=== PATIENT | male | born 1955 | race Caucasian/White ===

== ENCOUNTER 2018-05-19 11:55 | Outpatient (CLI) | payer SELFPAY | END 2018-05-19 11:56 | disposition home or self-care (01) | LOC: LAB.F 11:55 | PROVIDERS: ATTEND Internal Medicine | DX: Z53.9 Procedure and treatment not carried out, unspecified reason (principal) ==

== ENCOUNTER 2018-05-20 07:55 | Outpatient (CLI) | payer OTHER ==
[2018-05-20 10:10] LABS: BASOPHILS % (AUTO) 0.3 %; EOSINOPHILS # (AUTO) 0.1 10^3/uL (0.0-0.7); EOSINOPHILS % (AUTO) 1.9 %; HGB - HEMOGLOBIN 15.3 g/dL (14.0-18.0); LYMPHOCYTES # (AUTO) 0.7 10^3/uL (1.5-3.5); LYMPHOCYTES % (AUTO) 17.5 %; MEAN CORPUSCULAR HEMOGLOBIN 32.5 pg (27.0-31.0); MEAN CORPUSCULAR HGB CONC 35.6 g/dL (32.0-36.0); MEAN CORPUSCULAR VOLUME 91.1 fL (80.0-94.0); MEAN PLATELET VOLUME 8.6 fL (7.4-11.4); MONOCYTES # (AUTO) 0.3 10^3/uL (0.0-1.0); MONOCYTES % (AUTO) 7.6 %; NEUTROPHILS # (AUTO) 2.7 10^3/uL (1.5-6.6); NEUTROPHILS % (AUTO) 72.7 %; PLT - PLATELET COUNT 173 10^3/uL (130-450); RED BLOOD COUNT 4.72 10^6/uL (4.70-6.10); RED CELL DISTRIBUTION WIDTH 13.5 % (12.0-15.0); WHITE BLOOD COUNT 3.7 x10^3/uL (4.8-10.8)
[2018-05-20 10:33] LABS: ALBUMIN 4.3 g/dL (3.2-5.5); ALBUMIN/GLOBULIN RATIO 1.7 (1.0-2.2); ALKALINE PHOSPHATASE 48 IU/L (42-121); ALT ALANINE AMINOTRANSFERASE 21 IU/L (10-60); AST ASPARTATE AMINOTRANSFERASE 25 IU/L (10-42); BILIRUBIN,TOTAL 1.8 mg/dL (0.2-1.0); BUN - BLOOD UREA NITROGEN 13 mg/dL (6-20); CARBON DIOXIDE - CO2 28 mmol/L (21-32); CHLORIDE 105 mmol/L (101-111); CHOL/HDL RATIO 3.6 (<5.0); CHOLESTEROL 216 mg/dL; CREATININE 0.9 mg/dL (0.6-1.2); GFR - MDRD 86 (>89); GLUCOSE 98 mg/dL (70-100); HDL CHOLESTEROL 60 mg/dL; LDL CHOLESTEROL,CALCULATED 143 mg/dL; LDL/HDL RATIO 2.4 (<3.6); SODIUM 140 mmol/L (135-145); TOTAL PROTEIN 6.8 g/dL (6.7-8.2); VLDL CHOLESTEROL 13 mg/dL
[2018-05-20 10:44] LABS: THYROID STIMULATING HORMONE 2.53 uIU/mL (0.34-5.60)
== END 2018-05-20 07:56 | disposition home or self-care (01) ==
LOC: LAB.F 07:55
PROVIDERS: ATTEND Physician Assistant Medical
DX: Z00.00 Encounter for general adult medical examination without abnormal findings (principal); R41.89 Other symptoms and signs involving cognitive functions and awareness
CPT/HCPCS: 36415; 80053; 80061; 81599; 82306; 82607; 83721; 84153; 84443; 85025; 86592

== ENCOUNTER 2018-07-31 09:32 | Outpatient (CLI) | payer OTHER ==
--- NOTE | 2018-07-31 17:58 | CONSULTATION NOTE ---
Palliative Care Consultation - Referral Referring Provider: Dr. Gladis Pruitt Time of Visit: [id number] [place] [facility] [place] Reason: Left Parietal Glioblastoma/Goals of Care - Information Sources Records reviewed: Previous records reviewed History/Review of Systems obtained from: Patient, Family (S/O Priscila Fransico with patient) Exam limitations: No limitations - History of Present Illness Brief History of Present Illness: This is a 62-year-old gentleman who reports having increased cognitive changes over 6-8-months previous to his diagnosis. He is been experiencing increased difficulty with writing, finding words, and some aphasia. He was a contractor, and was noting increased difficulty with communication, and more difficulty with complex discussions. On 05/14/2018 saw his primary care provider, who recommended a MRI and was found to have a left parietal intrinsic brain mass on imaging measuring 4.4 x 5.9 cm. He was transferred to the [facility], original plan had been to have an open craniotomy, but given the risks given the location of the lesion, more likely to cause further deficits, he had a sterotactic biopsy on 06/04. He is currently receiving concurrent chemoradiation with Temodar. He started radiation on 06/25/2018 and started Temodar on 06/27/2018. He is due to finish on 08/13/2018. He mostly has experienced low-grade nausea, mild anorexia, and fatigue. He remains quite functional and indeed continues to bike and participate in normal activities. Treatment regimen will then include 6 months of monthly Temodar. He is currently also participating in the Navitas trial, using a halo device that delivers ultra low dose [employer]. He wears this at all times, and gets labs regularly as part of trial. Patient does understand the seriousness of his illness, treatment is palliative in nature, and does express some resignation given the current situation. He reports he has an internal [place] of friends, who are helping him explore further treatment regimens, as well as support him and his current journey. He did have a 3-hour interview with an oncologist in [place], looking at a molecular proposal, that integrates into current treatment plan. He did report it was somewhat overwhelming, and of course would be of significant expense.Both he and his partner are feeling significantly impacted by the current situation, many of the unknowns, and how best to move forward with the decision making process. Medical/Surgical History - Past Medical History Cardiovascular: reports: None Respiratory: reports: None Endocrine/Autoimmune: reports: None GI: reports: None : reports: None HEENT: reports: None Psych: reports: None Musculoskeletal: reports: None Derm: reports: None MRSA Hx?: No - Past Surgical History HEENT: reports: Other (wisdom teeth) - Substance History Use: Uses substance without health or social issues: Cannabis Social History - Living Situation Living arrangement: At home Living Situation: With spouse/s.o. Support System: Patient lives with his significant other Priscila Bateman, has been stressful for the relationship, trying to negotiate moving forward how to live in a "new normal" and address issues as they surface. She would like him to be more involved in his care, she has been managing most of appointments/meetings/ etc. They have put some advanced care planning components in place, but still working finishing these up. Family History - Family History Family History: Father: Alive and Well (his father and her father are both frail) Medications/Allergies - Medications Home Medications: Ambulatory Orders Medication Instructions Recorded Confirmed Levetiracetam [Keppra] 500 mg PO BID 07/14/18 08/03/18 Temozolomide [Temodar] 150 mg PO DAILY 07/14/18 08/03/18 Ondansetron [Ondansetron Odt] 4 mg PO Q6HR PRN 08/03/18 08/03/18 - Allergies Allergies/Adverse Reactions: Allergies Allergy/AdvReac Type Severity Reaction Status Date / Time Sulfa (Sulfonamide AdvReac Mild Rash Verified 07/18/14 13:12 Antibiotics) Review of Systems - Constitutional Constitutional: reports: Fatigue, Weight stable. denies: Fever, Chills - Respiratory Respiratory: reports: SOB with exertion. denies: SOB at rest - Gastrointestinal Gastrointestinal: reports: Nausea, Other (some impact on appetite; using CBD for nausea). denies: Vomiting - Neurological Neurological: reports: Memory problems - Hematologic/Lymphatic Hematologic/Lymphatic: denies: Recurrent infections Physical Exam - Vital Signs Pulse Rate: 79 Respiratory Rate: 18 Blood Pressure: 113/78 - Physical Exam General Appearance: positive: No acute distress Eyes Bilateral: positive: Normal inspection, Other (left eye watery) ENT: positive: No signs of dehydration Neck: positive: No JVD, Trachea midline Cardiovascular: positive: Regular rate & rhythm Respiratory: positive: No respiratory distress, Breath sounds nml Abdomen: positive: Soft, Nml bowel sounds Skin: positive: Pallor, Dryness Extremities: positive: No pedal edema Neurologic/Psychiatric: positive: Oriented x3 Palliative Care - POLST Patient has POLST: Yes POLST Status: DNR, Selective Treatment (Completed POLST at visit) Pain: No pain Tiredness/Fatigue: Moderate (4-6) Nausea: Mild (1-3) Performance Status: Patient independent in all ADLs and IADLs. Continues his biking, regular activities, is currently retired from his general [employer]. He is awaiting SSI disability. - Palliative Care Discussion: Patient reports he has done D POA with Priscila Bateman as his designated decision maker home phone number [phone]; mobile [phone]. Counseling provided regarding need to get this document into H IM here at the hospital, will bring copy next visit. Counseling provided regarding advanced care planning, given the context of glioblastoma's, changes that occur as a result in progression of disease, is important to have values and thresholds regarding quality of life defined early on. Patient did want a complete FLIP ST, it was reviewed and completed with DNA R and selected treatment, determine the use of antibiotics with comfort is the goal, and no medically assisted nutrition. Patient perceives he has done a lot of inner work, as far is excepting his imminent decline, now has gotten complicated with looking at an integrated therapy plan that may extend both his quantity and quality of life, weighing benefits and burdens of moving forward with this. Recognizing many things play into this picture, including a financial commitment, and the need to prioritize and define what is most important at this point in time. Patient reports has had personal experience with several close friends and family members with hospice, and this is not an overwhelming concept to him either looking into the future. Results - Lab Results Lab results reviewed: Yes Impression and Recommendations - Palliative Care Impression: This is a 62-year-old gentleman with a left parietal glioblastoma, currently receiving concurrent chemoradiation with Temodar. He is exploring other integrated regimens, weighing benefits and burdens as he moves forward and defining what makes sense in the context of his goals and values. Palliative care to continue to provide support for symptom management and counseling around advanced care planning. Recommendations/Counseling Done: 1. Nausea, this is multifactorial in origin. Less likely attributed to radiation combined with Temodar. Patient is using CBD with fairly good results, did provide ondansetron 4 mg ODT prescription though as it "plan B" if more acute and not resolved with CBD. 2. Left parietal glioblastoma. Patient has some deficits relating to this, unable to tell if these at all impact decision-making or coping. Currently patient able to remain quite functional. 2.Advanced care planning. Patient and S/O are experience significant tensions related to addressing current serious illness and implications for both now and in the future. Counseling provided to normalize current grief and loss process, encouraged use of current resources i.e. their counselor and friends cirlce, as well as to look at defining current priorities. FLIP ST completed, discussion regarding end-of-life wishes, as well as decision making in the future. At this point in time exploring integrated therapy options, unfortunately this is added another layer of complexity for navigating this decision making and adding to stressors. Time Spent: 75 minutes with greater than 50% of this done in counseling and coordination of care, anticipatory guidance and advanced care planning
== END 2018-07-31 09:33 | disposition home or self-care (01) ==
LOC: PC 09:32
PROVIDERS: ATTEND Nurse Practitioner Adult Health
DX: Z51.5 Encounter for palliative care (principal); C71.9 Malignant neoplasm of brain, unspecified; R11.0 Nausea; Z66 Do not resuscitate
CPT/HCPCS: 99205

== ENCOUNTER 2018-08-27 08:58 | Outpatient (CLI) | payer OTHER ==
--- NOTE | 2018-08-27 20:47 | CONSULTATION NOTE ---
Palliative Care Follow Up - Referral Referring Provider: Dr. Gladis Pruitt Time of Visit: 03-16 [place] [facility] [place] Reason: Left Parietal Glioblastoma/ Goals of Care - Information Sources Records reviewed: Previous records reviewed History/Review of Systems obtained from: Patient Exam limitations: No limitations - History of Present Illness Update Brief HPI Update: Please see HPI 07/31. This is a 62-year-old gentleman who has a left parietal Glioblastoma. He was having increased cognitive changes over 6-8 months previous to his diagnosis, with writing, finding words, and aphasia. He was seen at [facility], was not a candidate for debulking, but had a stereotactic biopsy on 06/04. During this time. This was an emotional and significant upheaval in trying to chart a course and prepare for the future. Received concurrent chemoradiation with Temodar, and completed this on 2018. Patient also explored further integrative therapies, at this point in time has declined to move forward with this. The plan is for Temodar for 6 months. He is also on the Navitas trial, Using a halo device that delivers ultra low-dose radiofrequency energy, which she wears at all times. Patient presents today with his significant other Shannan, daughter Jadyn from [place], and her significant other Ector. Patient reports he is feeling much improved, as well as he is felt for many months, his speech is better, aphasia is improved, he is able to write and follow emails, and feels somewhat normal. He is aware of the seriousness of his illness, that treatment is palliative in nature, but now that things have settled down is feeling some shift and how he wants to proceed, particularly around goals of care and D POA. This has caused much tension, and the goal of today's visit was to review how to address some of these concerns and how to move forward. Social History - Living Situation Living arrangement: At home Living Situation: With spouse/s.o. 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 Patient lives with his significant other Priscila Bateman, there have been multiple stressors regarding the relationship, and navigating the current situation. Patient identifies his care habematolel, of support. But has shifted the role of Priscila to outside this habematolel, this is caused some notable distress, she identifies herself as a primary caregiver, and wonders about her current role and their relationship.) Medications/Allergies - Medications Home Medications: Ambulatory Orders Medication Instructions Recorded Confirmed Levetiracetam [Keppra] 500 mg PO BID 07/14/18 08/27/18 Ondansetron [Ondansetron Odt] 4 mg PO Q6HR PRN 08/03/18 08/27/18 - Allergies Allergies/Adverse Reactions: Allergies Allergy/AdvReac Type Severity Reaction Status Date / Time Sulfa (Sulfonamide AdvReac Mild Rash Verified 07/18/14 13:12 Antibiotics) Review of Systems - Other Findings Other Findings: As noted in HPI, patient has felt quite well. He has been able to maintain his level of activity, appetite is good. Denies any acute signs or symptoms. His neurological symptoms have improved and is feeling "normal currently". Limited ROS was done in the context of moving forward with family meeting Physical Exam - Physical Exam General Appearance: positive: No acute distress, Alert Eyes Bilateral: positive: Normal inspection ENT: positive: No signs of dehydration Neck: positive: Trachea midline Respiratory: positive: No respiratory distress Neurologic/Psychiatric: positive: Oriented x3, Mood/affect nml Palliative Care - POLST Patient has POLST: Yes POLST Status: DNR, Selective Treatment Pain: Severity (1/10) Tiredness/Fatigue: Mild (1-3) Drowsiness/Sedation: Mild (1-3) Nausea: None Depression: Mild (1-3) Anxiety: Mild (1-3) Dyspnea: None Anorexia: None Feelings of wellbeing/Perceived Quality of Life: Good, Acceptable, Improved Performance Status: Patient currently independently with ADLs, able to function without any limitations. Continues with intermittent word finding, but overall has improved. Does continue to try and maintain his exercise/activity schedule. - Palliative Care Discussion: Discussion related to goals of care, short term goals, long-term planning and EOL values/beliefs, and current tensions/stressors. It would like to change Keke FISH, to his daughter Jadyn particularly around medical/health care decision making.This was discussed and agreed upon, given patient's expressed concerns for future decision making and current tensions in relationship with Priscila. Priscila sharing her concerns regarding feeling insecure around her role, perceives her self is primary caregiver, and being excluded from the process. Counseling regarding normalizing current stressors and often amplification of difficulties and complexities in relationships. Reviewed my concerns, given patient's current clarity, feeling fairly centered and "normal" with his underlying diagnosis, this would be actually a place of urgency to move forward plans and solidifying legal matters. Anticipatory guidance provided regarding the uncertainty of the trajectory, focusing on hoping for the best, and clarity to end of life, but recognizing shifts and complications can happen quite quickly so important to put as much of the infrastructure and information down in writing as possible. Recommended to work with insurance appraiser/or real estate professional regarding financial planning, concerns, and feeling of vulnerability of s/o, but DPOA for medical affairs can be addressed with current forms supplies. Introduced and provided copy of FLIP ST to daughter Jadyn, as she takes on the role of health proxy/D POA for medical affairs. Reviewed currently patient is and can will continue to be able to make decisions independently as long as presents with decision-making capacity. Did recommend future discussions include the threshold for discontinuing treatment, what would not be considered quality of life, who will be his caregiving team and/or plans for support for end-of-life care, and patient's expressed interest regarding DWD option, need to discuss the limitations in the context of neurological disease and brain tumors. Results - Lab Results Lab results reviewed: Yes Impression and Recommendations - Palliative Care Impression: Is a 62-year-old gentleman with left parietal glioblastoma, having completed receiving concurrent chemoradiation with Temodar. He has a MRI scheduled for 09/02, will initiate maintenance of 6 months of team adore most likely based on the outcome of this. He is currently not exploring further integrated treatment, though continues with pedro Cardoso. He presents today with his family and SO, to discuss ongoing goals of care and the complexity of a terminal illness in the midst of heightened emotional tensions. Palliative care to provide support for symptom management as well as emotional distress, will continue to provide anticipatory guidance. Recommendations/Counseling Done: 1. Left parietal glioblastoma. Patient has had improvement with concurrent chemoradiation Temodar. He has a pending MRI, with the expectation of moving forward with 6 months of Temodar. Patient currently functional, presenting with limited deficits. 2. Advanced care planning. Family meeting to include redefining and identifying daughter Jadyn as medical D POA. Provided several different forms, but recommended end of life Pablo as it has more advanced directive components to it to help with decision making in the future. Reviewed the FLIP ST, the role, and provided copies. Given the complexity of the situation, did recommend further follow-up regarding financial D POA, to include follow up with real estate professional/and or insurance appraiser to address concerns but did express my recommendation to attend to this sooner than later. Encouraged follow-up for patient and SO, to negotiate and to define roles moving forward, acknowledging t he complexity of the situation combined with uncertainty of the future is challenging, but important to identify ways to keep communication open to support all involved. Anticipatory guidance provided and addressing Carmen's concerns and questions, and laid out some questions to further discuss in the future to plan for end of life and patient's values. Time Spent: 60 minutes with greater than 50% of this done in family meeting regarding counseling around goals of care and anticipatory guidance.
== END 2018-08-27 08:59 | disposition home or self-care (01) ==
LOC: PC 08:58
PROVIDERS: ATTEND Nurse Practitioner Adult Health
DX: Z51.5 Encounter for palliative care (principal); C71.9 Malignant neoplasm of brain, unspecified; Z66 Do not resuscitate; Z63.0 Problems in relationship with spouse or partner; Z92.3 Personal history of irradiation; Z92.21 Personal history of antineoplastic chemotherapy
CPT/HCPCS: 99215

== ENCOUNTER 2018-09-02 15:39 | Outpatient (CLI) | payer OTHER ==
[2018-09-02] MEDS ORDERED: GADOBUTROL 10 MMOL/10 ML VIAL IVP ONE (17:34)
--- NOTE | 2018-09-03 09:40 | MRI Report ---
Reason: GBM Procedure Date: 09/02/2018 Accession Number: [id number] / [id number] Procedure: MRI - Brain W/WO CPT Code: FULL RESULT: EXAM: MRI BRAIN WITHOUT AND WITH CONTRAST EXAM DATE: 09/02/2018 05:39 PM. CLINICAL HISTORY: 62-year-old male. Left parietal glioblastoma. Completed concurrent chemoradiation with Temodar. COMPARISON: None. TECHNIQUE: Multiplanar, multisequence T1-weighted and fluid-sensitive MR sequences of the brain were performed. Sequences optimized for routine evaluation. Other: None. IV Contrast: 8 mL Gadavist. FINDINGS: Brain Volume: Normal for age. Parenchyma: A lobular circumscribed heterogeneous partially solid and partially cystic mass is seen in the left posterolateral temporal and inferior parietal lobes. This is primarily solid with arcuate cystic component along its superior and posteromedial margins. Solid component demonstrates heterogeneous hypointense T1 signal with patchy areas of T1 shortening and magnetic susceptibility. Scattered areas of restricted diffusion are noted. Rind-like peripheral enhancement is seen. This mass measures 53 x 39 x 50 mm (SI by AP by RL). Localized mass effect is seen. Anterior displacement of the posterior insula and sylvian fissure is seen. Medial displacement of the atrium of the left lateral ventricle is noted with effacement. Mild surrounding T2/FLAIR bright white matter signal is appreciated. The remainder of the brain parenchyma is unremarkable. No acute infarct is seen. No parenchymal hematoma. No shift of midline structures. Ventricles/Cisterns: Mass effect on the posterior left lateral ventricle is seen. No hydrocephalus. No abnormal extra-axial fluid collection or hemorrhage. Orbits: Symmetric and unremarkable. Sella Turcica: Note is made of a partially empty sella turcica. A thin rind of pituitary tissue is seen along the floor of the sella turcica. The pituitary stalk is midline. The cavernous sinuses, suprasellar cistern, and optic chiasm are unremarkable. IAC: Symmetric and unremarkable. Vasculature: Normal signal flow void is seen in the major arterial structures at the skull base. The dural sinuses are patent and enhance normally. Sinuses: No acute sinus disease. Bones: No focal pathologic appearing marrow signal changes. A small biopsy bur hole is seen in the posterior left parietal skull. Other: None. IMPRESSION: 1. Lobular heterogeneous mass in the posterolateral left temporal and inferior parietal lobes consistent with the clinical history of glioblastoma. Mass measures approximately 53 x 39 x 50 mm. Mild surrounding T2/FLAIR bright white matter signal is seen. Localized mass effect is seen especially on the atrium of the left lateral ventricle. 2. The remainder of the brain parenchyma is unremarkable. RADIA
== END 2018-09-02 15:40 | disposition home or self-care (01) ==
LOC: DI 15:39
PROVIDERS: ATTEND Nurse Practitioner Adult Health
DX: C71.9 Malignant neoplasm of brain, unspecified (principal)
CPT/HCPCS: 70553

== ENCOUNTER 2018-11-06 08:04 | Outpatient (CLI) | payer OTHER ==
[2018-11-06] MEDS ORDERED: GADOBUTROL 10 MMOL/10 ML VIAL ONE (09:10)
[2018-11-06] MEDS ORDERED: GADOBUTROL 10 MMOL/10 ML VIAL IVP ONE (09:27)
--- NOTE | 2018-11-06 13:05 | MRI Report ---
Reason: MALIGNANT NEOPLASM OF PARIETAL LOBE Procedure Date: 11/06/2018 Accession Number: [id number] / [id number] Procedure: MRI - Brain W/WO CPT Code: FULL RESULT: EXAM: MRI BRAIN WITHOUT AND WITH CONTRAST EXAM DATE: 11/06/2018 08:46 AM. CLINICAL HISTORY: 62-year-old male with history of left parietal glioblastoma. History of chemoradiation with Temodar. COMPARISON: BRAIN W/WO 09/02/2018 4:59 PM. TECHNIQUE: Multiplanar, multisequence T1-weighted and fluid-sensitive MR sequences of the brain were performed. Sequences optimized for routine evaluation. Other: None. IV Contrast: 8 mL Gadavist. FINDINGS: There is no intense area of diffusion restriction to suggest an area of acute or subacute cerebral infarction. There is a partially solid, partially cystic mass of the left inferior parietal and superior left temporal lobe exhibiting peripheral rim enhancement and central areas of linear enhancement. The mass measures 4.4 x 5.5 x 5.3 cm. It previously measured 4.3 x 5.2 x 5.3 cm. Therefore, there is little to no change in the overall size of the lesion. There has been a significant increase in the surrounding vasogenic edema since the previous exam. The midline shift from [id number] measures 4 mm and previously measured 3 mm. There is a new focus of T2 hyperintensity and subtle enhancement present in the medial left cerebellar hemisphere (5, 1101 and 5, 601). It measures 5 x 5 mm. This may reflect a new focus of tumor versus possibly postradiation change. There are surgical changes of the left parietal kelsea hole. There are small foci of susceptibility demonstrated within the left temporal and parietal mass, consistent with small foci of calcification versus old blood products. The bilateral parotid spaces exhibit normal signal intensity. The cerebral vascular flow voids are patent. The optic nerves demonstrate symmetric signal intensity and size. The imaged portions of the paranasal sinuses are normally aerated. IMPRESSION: 1.There is again a large partially solid, partially cystic mass of the left inferior parietal and superior left temporal lobe exhibiting peripheral rim enhancement and central areas of linear enhancement. It measures 4.4 x 5.5 x 5.3 cm. It is unchanged in size. However, the surrounding vasogenic edema has significantly increased since the previous exam and the midline shift has increased from 3 mm to now 4 mm. 2. There is a new T2 hyperintense enhancing focus present in the medial left cerebellar hemisphere measuring 5 x 5 mm. This may reflect a new focus of tumor versus possibly postradiation change.
== END 2018-11-06 08:05 | disposition home or self-care (01) ==
LOC: DI 08:04
PROVIDERS: ATTEND Internal Medicine Hematology & Oncology
DX: C71.3 Malignant neoplasm of parietal lobe (principal)
CPT/HCPCS: 70553; A9585

== ENCOUNTER 2019-01-11 15:45 | Outpatient (CLI) | payer OTHER ==
[2019-01-11 17:20] LABS: BASOPHILS % (AUTO) 0.2 %; HGB - HEMOGLOBIN 15.1 g/dL (14.0-18.0); LYMPHOCYTES # (AUTO) 0.5 10^3/uL (1.5-3.5); LYMPHOCYTES % (AUTO) 4.4 %; MEAN CORPUSCULAR HEMOGLOBIN 33.2 pg (27.0-31.0); MEAN CORPUSCULAR HGB CONC 34.7 g/dL (32.0-36.0); MEAN CORPUSCULAR VOLUME 95.6 fL (80.0-94.0); MEAN PLATELET VOLUME 10.1 fL (7.4-11.4); MONOCYTES # (AUTO) 0.4 10^3/uL (0.0-1.0); MONOCYTES % (AUTO) 3.6 %; NEUTROPHILS # (AUTO) 9.2 10^3/uL (1.5-6.6); NEUTROPHILS % (AUTO) 90.7 %; PLT - PLATELET COUNT 180 10^3/uL (130-450); RED BLOOD COUNT 4.55 10^6/uL (4.70-6.10); WHITE BLOOD COUNT 10.2 x10^3/uL (4.8-10.8)
[2019-01-11 17:51] LABS: ALBUMIN 4.8 g/dL (3.2-5.5); ALBUMIN/GLOBULIN RATIO 1.9 (1.0-2.2); BILIRUBIN,TOTAL 1.2 mg/dL (0.2-1.0); CALCIUM 9.7 mg/dL (8.5-10.3); CREATININE 0.7 mg/dL (0.6-1.2); TOTAL PROTEIN 7.3 g/dL (6.7-8.2)
== END 2019-01-11 15:46 | disposition home or self-care (01) ==
LOC: LAB.S 15:45
PROVIDERS: ATTEND Internal Medicine Hematology & Oncology
DX: C17.3 Meckel's diverticulum, malignant (principal)
CPT/HCPCS: 36415; 80053; 85025

== ENCOUNTER 2019-01-29 15:14 | Outpatient (CLI) | payer OTHER ==
[2019-01-29 18:32] LABS: BASOPHILS % (AUTO) 0.1 %; LYMPHOCYTES # (AUTO) 0.5 10^3/uL (1.5-3.5); LYMPHOCYTES % (AUTO) 6.5 %; MEAN CORPUSCULAR HEMOGLOBIN 33.9 pg (27.0-31.0); MEAN CORPUSCULAR HGB CONC 35.2 g/dL (32.0-36.0); MEAN CORPUSCULAR VOLUME 96.2 fL (80.0-94.0); MEAN PLATELET VOLUME 9.9 fL (7.4-11.4); MONOCYTES # (AUTO) 0.3 10^3/uL (0.0-1.0); MONOCYTES % (AUTO) 4.2 %; NEUTROPHILS # (AUTO) 6.2 10^3/uL (1.5-6.6); NEUTROPHILS % (AUTO) 88.8 %; PLT - PLATELET COUNT 196 10^3/uL (130-450); RED BLOOD COUNT 4.43 10^6/uL (4.70-6.10); RED CELL DISTRIBUTION WIDTH 13.6 % (12.0-15.0); WHITE BLOOD COUNT 6.9 x10^3/uL (4.8-10.8)
[2019-01-29 18:55] LABS: ALBUMIN 4.2 g/dL (3.2-5.5); ALBUMIN/GLOBULIN RATIO 1.5 (1.0-2.2); BILIRUBIN,TOTAL 1.2 mg/dL (0.2-1.0); CALCIUM 9.5 mg/dL (8.5-10.3); CREATININE 0.7 mg/dL (0.6-1.2)
== END 2019-01-29 15:15 | disposition home or self-care (01) ==
LOC: LAB.F 15:14
PROVIDERS: ATTEND Internal Medicine Hematology & Oncology
DX: C71.3 Malignant neoplasm of parietal lobe (principal)
CPT/HCPCS: 36415; 80053; 85025

== ENCOUNTER 2019-03-01 11:20 | Outpatient (CLI) | payer OTHER ==
[2019-03-01 17:35] LABS: BASOPHILS % (AUTO) 0.4 %; EOSINOPHILS # (AUTO) 0.1 10^3/uL (0.0-0.7); EOSINOPHILS % (AUTO) 1.3 %; HGB - HEMOGLOBIN 14.6 g/dL (14.0-18.0); LYMPHOCYTES # (AUTO) 0.8 10^3/uL (1.5-3.5); LYMPHOCYTES % (AUTO) 14.5 %; MEAN CORPUSCULAR HEMOGLOBIN 34.3 pg (27.0-31.0); MEAN CORPUSCULAR HGB CONC 34.7 g/dL (32.0-36.0); MEAN CORPUSCULAR VOLUME 98.8 fL (80.0-94.0); MEAN PLATELET VOLUME 10.1 fL (7.4-11.4); MONOCYTES # (AUTO) 0.5 10^3/uL (0.0-1.0); MONOCYTES % (AUTO) 8.7 %; NEUTROPHILS % (AUTO) 73.8 %; PLT - PLATELET COUNT 202 10^3/uL (130-450); RED BLOOD COUNT 4.26 10^6/uL (4.70-6.10); RED CELL DISTRIBUTION WIDTH 14.1 % (12.0-15.0); WHITE BLOOD COUNT 5.4 x10^3/uL (4.8-10.8)
[2019-03-01 17:50] LABS: ALBUMIN 4.1 g/dL (3.2-5.5); ALBUMIN/GLOBULIN RATIO 1.5 (1.0-2.2); BILIRUBIN,TOTAL 1.3 mg/dL (0.2-1.0); CALCIUM 9.7 mg/dL (8.5-10.3); CREATININE 0.8 mg/dL (0.6-1.2); TOTAL PROTEIN 6.9 g/dL (6.7-8.2)
== END 2019-03-01 11:21 | disposition home or self-care (01) ==
LOC: LAB.S 11:20
PROVIDERS: ATTEND Internal Medicine Hematology & Oncology
DX: C71.9 Malignant neoplasm of brain, unspecified (principal)
CPT/HCPCS: 36415; 80053; 85025

== ENCOUNTER 2019-03-26 11:02 | Outpatient (CLI) | payer OTHER ==
[2019-03-26 17:33] LABS: BASOPHILS % (AUTO) 0.2 %; EOSINOPHILS # (AUTO) 0.2 10^3/uL (0.0-0.7); EOSINOPHILS % (AUTO) 3.4 %; HGB - HEMOGLOBIN 15.1 g/dL (14.0-18.0); LYMPHOCYTES # (AUTO) 0.9 10^3/uL (1.5-3.5); LYMPHOCYTES % (AUTO) 17.1 %; MEAN CORPUSCULAR HEMOGLOBIN 34.5 pg (27.0-31.0); MEAN CORPUSCULAR HGB CONC 35.5 g/dL (32.0-36.0); MEAN PLATELET VOLUME 10.4 fL (7.4-11.4); MONOCYTES # (AUTO) 0.5 10^3/uL (0.0-1.0); MONOCYTES % (AUTO) 9.1 %; NEUTROPHILS # (AUTO) 3.5 10^3/uL (1.5-6.6); NEUTROPHILS % (AUTO) 69.6 %; PLT - PLATELET COUNT 197 10^3/uL (130-450); RED BLOOD COUNT 4.38 10^6/uL (4.70-6.10); RED CELL DISTRIBUTION WIDTH 14.6 % (12.0-15.0)
[2019-03-26 17:48] LABS: ALBUMIN 4.4 g/dL (3.2-5.5); ALBUMIN/GLOBULIN RATIO 1.6 (1.0-2.2); BILIRUBIN,TOTAL 1.1 mg/dL (0.2-1.0); CALCIUM 9.6 mg/dL (8.5-10.3); CREATININE 1.1 mg/dL (0.6-1.2); TOTAL PROTEIN 7.1 g/dL (6.7-8.2)
== END 2019-03-26 11:03 | disposition home or self-care (01) ==
LOC: LAB.S 11:02
PROVIDERS: ATTEND Internal Medicine Hematology & Oncology
DX: C71.9 Malignant neoplasm of brain, unspecified (principal)
CPT/HCPCS: 36415; 80053; 85025

== ENCOUNTER 2019-04-23 15:07 | Outpatient (CLI) | payer OTHER ==
[2019-04-29 14:23] LABS: MEAN CORPUSCULAR HEMOGLOBIN 32.9 pg (27.0-31.0); MEAN CORPUSCULAR HGB CONC 33.5 g/dL (32.0-36.0); MEAN CORPUSCULAR VOLUME 98.1 fL (80.0-94.0); MEAN PLATELET VOLUME 9.8 fL (7.4-11.4); PLT - PLATELET COUNT 209 10^3/uL (130-450); RED BLOOD COUNT 4.26 10^6/uL (4.70-6.10); RED CELL DISTRIBUTION WIDTH 14.7 % (12.0-15.0); WHITE BLOOD COUNT 6.2 x10^3/uL (4.8-10.8)
[2019-04-29 14:26] LABS: BASOPHILS % (AUTO) 0.3 %; EOSINOPHILS % (AUTO) 0.3 %; LYMPHOCYTES # (AUTO) 0.2 10^3/uL (1.5-3.5); LYMPHOCYTES % (AUTO) 3.9 %; MONOCYTES # (AUTO) 0.3 10^3/uL (0.0-1.0); MONOCYTES % (AUTO) 4.7 %; NEUTROPHILS # (AUTO) 5.6 10^3/uL (1.5-6.6); NEUTROPHILS % (AUTO) 90.3 %
[2019-04-29 14:30] LABS: ALBUMIN 4.4 g/dL (3.2-5.5); ALBUMIN/GLOBULIN RATIO 1.5 (1.0-2.2); BILIRUBIN,TOTAL 1.3 mg/dL (0.2-1.0); CALCIUM 9.8 mg/dL (8.5-10.3); TOTAL PROTEIN 7.3 g/dL (6.7-8.2)
== END 2019-04-23 15:08 | disposition home or self-care (01) ==
LOC: LAB.S 15:07
PROVIDERS: ATTEND Internal Medicine Hematology & Oncology
DX: C71.9 Malignant neoplasm of brain, unspecified (principal)
CPT/HCPCS: 36415; 80053; 85025

== ENCOUNTER 2019-05-24 10:21 | Outpatient (CLI) | payer OTHER ==
[2019-05-24 17:18] LABS: BASOPHILS % (AUTO) 0.4 %; EOSINOPHILS # (AUTO) 0.1 10^3/uL (0.0-0.7); EOSINOPHILS % (AUTO) 1.4 %; HGB - HEMOGLOBIN 14.2 g/dL (14.0-18.0); LYMPHOCYTES # (AUTO) 0.4 10^3/uL (1.5-3.5); LYMPHOCYTES % (AUTO) 8.8 %; MEAN CORPUSCULAR HGB CONC 34.2 g/dL (32.0-36.0); MEAN CORPUSCULAR VOLUME 99.3 fL (80.0-94.0); MONOCYTES # (AUTO) 0.4 10^3/uL (0.0-1.0); MONOCYTES % (AUTO) 8.1 %; NEUTROPHILS % (AUTO) 80.7 %; PLT - PLATELET COUNT 203 10^3/uL (130-450); RED BLOOD COUNT 4.18 10^6/uL (4.70-6.10); RED CELL DISTRIBUTION WIDTH 13.7 % (12.0-15.0); WHITE BLOOD COUNT 4.9 x10^3/uL (4.8-10.8)
[2019-05-24 17:39] LABS: ALBUMIN 4.3 g/dL (3.2-5.5); ALBUMIN/GLOBULIN RATIO 1.7 (1.0-2.2); BILIRUBIN,TOTAL 1.1 mg/dL (0.2-1.0); CALCIUM 9.3 mg/dL (8.5-10.3); CREATININE 0.8 mg/dL (0.6-1.2); TOTAL PROTEIN 6.8 g/dL (6.7-8.2)
== END 2019-05-24 10:22 | disposition home or self-care (01) ==
LOC: LAB.S 10:21
PROVIDERS: ATTEND Internal Medicine Hematology & Oncology
DX: C71.9 Malignant neoplasm of brain, unspecified (principal)
CPT/HCPCS: 36415; 80053; 85025

== ENCOUNTER 2019-06-21 09:10 | Outpatient (CLI) | payer OTHER ==
[2019-06-21 17:15] LABS: BASOPHILS % (AUTO) 0.4 %; EOSINOPHILS # (AUTO) 0.1 10^3/uL (0.0-0.7); HGB - HEMOGLOBIN 13.7 g/dL (14.0-18.0); LYMPHOCYTES # (AUTO) 0.7 10^3/uL (1.5-3.5); LYMPHOCYTES % (AUTO) 15.7 %; MEAN CORPUSCULAR HEMOGLOBIN 33.4 pg (27.0-31.0); MEAN CORPUSCULAR HGB CONC 34.1 g/dL (32.0-36.0); MEAN PLATELET VOLUME 10.1 fL (7.4-11.4); MONOCYTES # (AUTO) 0.5 10^3/uL (0.0-1.0); NEUTROPHILS # (AUTO) 3.3 10^3/uL (1.5-6.6); NEUTROPHILS % (AUTO) 71.7 %; PLT - PLATELET COUNT 179 10^3/uL (130-450); RED CELL DISTRIBUTION WIDTH 13.6 % (12.0-15.0); WHITE BLOOD COUNT 4.6 x10^3/uL (4.8-10.8)
[2019-06-21 17:57] LABS: ALBUMIN 4.1 g/dL (3.2-5.5); ALBUMIN/GLOBULIN RATIO 1.6 (1.0-2.2); CALCIUM 9.1 mg/dL (8.5-10.3); CREATININE 0.9 mg/dL (0.6-1.2); TOTAL PROTEIN 6.7 g/dL (6.7-8.2)
== END 2019-06-21 09:11 | disposition home or self-care (01) ==
LOC: LAB.S 09:10
PROVIDERS: ATTEND Internal Medicine Hematology & Oncology
DX: C71.9 Malignant neoplasm of brain, unspecified (principal)
CPT/HCPCS: 36415; 80053; 85025

== ENCOUNTER 2019-07-22 10:46 | Outpatient (CLI) | payer OTHER ==
[2019-07-22 17:09] LABS: BASOPHILS % (AUTO) 0.6 %; EOSINOPHILS # (AUTO) 0.2 10^3/uL (0.0-0.7); EOSINOPHILS % (AUTO) 4.7 %; HGB - HEMOGLOBIN 14.7 g/dL (14.0-18.0); LYMPHOCYTES # (AUTO) 0.5 10^3/uL (1.5-3.5); MEAN CORPUSCULAR HEMOGLOBIN 32.4 pg (27.0-31.0); MEAN CORPUSCULAR HGB CONC 33.9 g/dL (32.0-36.0); MEAN CORPUSCULAR VOLUME 95.6 fL (80.0-94.0); MEAN PLATELET VOLUME 9.9 fL (7.4-11.4); MONOCYTES # (AUTO) 0.3 10^3/uL (0.0-1.0); MONOCYTES % (AUTO) 8.9 %; NEUTROPHILS # (AUTO) 2.6 10^3/uL (1.5-6.6); NEUTROPHILS % (AUTO) 72.2 %; PLT - PLATELET COUNT 196 10^3/uL (130-450); RED BLOOD COUNT 4.54 10^6/uL (4.70-6.10); RED CELL DISTRIBUTION WIDTH 13.6 % (12.0-15.0); WHITE BLOOD COUNT 3.6 x10^3/uL (4.8-10.8)
[2019-07-22 17:36] LABS: ALBUMIN 4.7 g/dL (3.2-5.5); BILIRUBIN,TOTAL 1.5 mg/dL (0.2-1.0); CALCIUM 9.3 mg/dL (8.5-10.3); TOTAL PROTEIN 7.1 g/dL (6.7-8.2)
== END 2019-07-22 10:47 | disposition home or self-care (01) ==
LOC: LAB.S 10:46
PROVIDERS: ATTEND Internal Medicine Hematology & Oncology
DX: C71.9 Malignant neoplasm of brain, unspecified (principal)
CPT/HCPCS: 36415; 80053; 85025